=== PATIENT | female | born 1940 | race Two or more races ===

== ENCOUNTER 2022-05-23 09:39 | Outpatient (CLI) | payer OTHER | END 2022-05-23 09:43 | disposition home or self-care (01) | LOC: SONOGRAMA 09:39 | PROVIDERS: ATTEND Pathology Anatomic Pathology & Clinical Pathology | DX: D34 Benign neoplasm of thyroid gland (principal); D04.9 Carcinoma in situ of skin, unspecified; E04.1 Nontoxic single thyroid nodule ==

== ENCOUNTER → 2022-11-11 10:12 | Outpatient (CLI) | payer OTHER | END | disposition home or self-care (01) | LOC: LAB 10:12 | PROVIDERS: ATTEND Internal Medicine Pulmonary Disease | DX: R91.1 Solitary pulmonary nodule (principal); A15.0 Tuberculosis of lung; B39.4 Histoplasmosis capsulati, unspecified ==

== ENCOUNTER 2024-07-26 10:45 | Outpatient (CLI) | payer OTHER | END 2024-07-26 10:47 | disposition home or self-care (01) | LOC: SONOGRAMA 10:45 | PROVIDERS: ATTEND Pathology Anatomic Pathology & Clinical Pathology | DX: D34 Benign neoplasm of thyroid gland (principal); E07.89 Other specified disorders of thyroid; E04.2 Nontoxic multinodular goiter ==

== ENCOUNTER → 2024-08-04 08:46 | Outpatient (CLI) | payer OTHER | END | disposition home or self-care (01) | LOC: NUCLEAR 08:30 | PROVIDERS: ATTEND Internal Medicine Hematology & Oncology | DX: C18.2 Malignant neoplasm of ascending colon (principal) | CPT/HCPCS: 78816; A9552 ==